=== PATIENT | male | born 1960 | race Caucasian/White ===

== ENCOUNTER 2019-03-07 08:55 | Day surgery (SDC) | payer OTHER ==
[2019-03-07] MEDS ORDERED: LACTATED RINGERS 1,000 ML IV ONE (09:19)
[2019-03-07] MEDS ORDERED: fentaNYL 100 MCG/2 ML VIAL IVP ONE (10:31)
[2019-03-07] MEDS ORDERED: MIDAZOLAM 2 MG/2 ML VIAL IVP ONE (10:31)
[2019-03-07 11:13] VITALS: BP 135/88
== END 2019-03-07 08:56 | disposition home or self-care (01) ==
LOC: SDS 08:55
PROVIDERS: ATTEND Internal Medicine
PROC: 0DB58ZX Excision of Esophagus, Via Natural or Artificial Opening Endoscopic, Diagnostic (ICD-10-PCS; principal; 2019-03-07 10:00)
DX: R07.89 Other chest pain (principal); K22.8 Other specified diseases of esophagus; K44.9 Diaphragmatic hernia without obstruction or gangrene
CPT/HCPCS: 43239; J7120